=== PATIENT | male | born 1995 | race Two or more races ===

== ENCOUNTER → 2025-04-10 | Outpatient (CLI) | payer MEDICAID, SELFPAY ==
--- NOTE | 2025-04-10 16:30 | XR_ITS ---
Examination: Hand, right 3 views Technique: Hand AP, oblique, lateral 3 views Date and time of exam: April 10, 2025, 1631 hours INDICATIONS: Hand fracture 2.5 months ago. FINDINGS: Partial healing fracture proximal fifth metacarpal Mild dorsal angulation at the fracture site Fracture line is still evident IMPRESSION: Recommend continued follow-up to document for complete healing fracture fifth metacarpal and exclude nonunion
--- NOTE | 2025-04-10 16:31 | XR_ITS ---
Examination: Wrist, right 3 views Technique: Wrist AP, oblique, lateral 3 views Date and time of exam: April 10, 2025, 1637 hours INDICATIONS: Right hand fracture 2.5 months ago. FINDINGS: Partial healing fracture proximal fifth metacarpal The fracture line is still quite evident on the oblique view IMPRESSION: Partially healing fracture fifth metacarpal, suggest continued follow-up to exclude nonunion at the fracture site
== END | disposition home or self-care (01) ==
PROVIDERS: PCP Family Medicine
DX: S62.396A Other fracture of fifth metacarpal bone, right hand, initial encounter for closed fracture (principal); X58.XXXA Exposure to other specified factors, initial encounter
CPT/HCPCS: 73110; 73130